=== PATIENT | female | born 1955 | race Caucasian/White ===

== ENCOUNTER 2019-12-30 08:47 | Emergency (ER) | payer OTHER ==
[2019-12-30] MEDS ORDERED: TETRACAINE HCL 0.5% 4ML OPTH ONE (09:07)
[2019-12-30] MEDS ORDERED: FLUORESCEIN SODIUM 1 MG/WRAP ONE (09:07)
--- NOTE | 2019-12-30 09:26 | ER ---
Nurse's Notes [facility] Name: Lanie Hdz Age: 64 yrs Sex: Female : 1955 Arrival Date: 12/30/2019 Time: 08:49 Bed 18 Private MD: Diagnosis: Conjunctivitis Presentation: 12/29 08:50 Chief complaint: Patient states: eye redness, watering, and swelling. Pt states "I've aa5 been dealing with bronchitis and I just got rid of it about 3 weeks ago and also I've had shingles in my eyes so I don't know if it's back". 08:50 Coronavirus screen: Patient reports a cough. Patient denies shortness of breath or aa5 difficulty breathing. Patient denies measured and/or subjective temperature greater than 100.4F prior to today's visit. Patient denies travel on a cruise ship or to a country the [facility] currently lists as an affected area. Patient denies contact with known and/or suspected case of COVID-19. Ebola Screen: Patient negative for fever greater than or equal to 101.5 degrees Fahrenheit, and additional compatible Ebola Virus Disease symptoms. Initial Sepsis Screen: Does the patient meet any 2 criteria? No. Patient's initial sepsis screen is negative. Does the patient have a suspected source of infection? No. Patient's initial sepsis screen is negative. Risk Assessment: Do you want to hurt yourself or someone else? Patient reports no desire to harm self or others. Onset of symptoms was December 2019. 08:50 Acuity: MALIA 4 aa5 08:50 Method Of Arrival: Ambulatory aa5 Historical: - Allergies: 09:01 No Known Allergies; aa5 - PMHx: 09:01 Arthritis; aa5 - PSHx: 09:01 None; aa5 - Immunization history:: Adult Immunizations up to date, Pneumococcal vaccine is up to date, Flu vaccine is up to date. - Social history:: Smoking status: Patient denies any tobacco usage or history of. Screenin:55 Abuse screen: Denies threats or abuse. Nutritional screening: No deficits noted. rb1 Tuberculosis screening: No symptoms or risk factors identified. 08:55 Fall Risk None identified. rb1 Assessment: 08:55 General: Appears in no apparent distress. comfortable, Behavior is calm, cooperative, rb1 Denies fever. Pain: Complains of pain in bilateral eyes Pain currently is 3 out of 10 on a pain scale. Quality of pain is described as soreness Pain began Wednesday. Neuro: Level of Consciousness is awake, alert, obeys commands, Oriented to person, place, time, situation. Cardiovascular: Capillary refill < 3 seconds is brisk in bilateral fingers. Respiratory: Airway is patent Respiratory effort is even, unlabored, Respiratory pattern is regular, symmetrical. GI: No signs and/or symptoms were reported involving the gastrointestinal system. : No signs and/or symptoms were reported regarding the genitourinary system. EENT: Eyes are tearing on bilateral eyes Sclera/Cornea are reddened in bilateral eyes pt. reports both eyes being matted in the mornings, itchy, and clear drainage. Derm: Skin is pink, warm \\T\\ dry. Vital Signs: 08:50 BP 118 / 93; Pulse 68; Resp 18 S; Temp 98.1(O); Pulse Ox 99% on R/A; Weight 72.57 kg aa5 (R); Height 5 ft. 7 in. (170.18 cm) (R); Pain 0/10; 08:50 Body Mass Index 25.06 (72.57 kg, 170.18 cm) aa5 Visual Acuity: 09:08 Left Eye Visual acuity 20/40, Pupil size 2 mm, ; Right Eye Visual acuity 20/40, Pupil rb1 size 2 mm, ; Without Lenses; ED Course: 08:49 Patient arrived in ED. as 08:50 Arm band placed on Patient placed in an exam room, on a stretcher. aa5 08:51 Nola Lindquist [facility]-C [facility]. snw 08:51 Obdulio Puente MD is Attending Physician. snw 08:55 Patient has correct armband on for positive identification. Bed in low position. Call rb1 light in reach. Side rails up X 1. Pulse ox on. NIBP on. 08:58 Siri Haji, XI is Primary Nurse. rb1 09:01 Triage completed. aa5 09:24 Lucho Pires MD is Referral Physician. snw 09:32 No provider procedures requiring assistance completed. Patient did not have IV access rb1 during this emergency room visit. Administered Medications: 09:05 Drug: Tetracaine Solution (0.5 %) 2 application {Note: bilateral eyes.} Route: Topical; rb1 Site: right eye; Outcome: :25 Discharge ordered by . snemily :32 Discharged to home ambulatory. rb1 :32 Condition: stable :32 Discharge instructions given to patient, Instructed on discharge instructions, follow up and referral plans. medication usage, Demonstrated understanding of instructions, follow-up care, medications, Prescriptions given X 1. :32 Patient left the ED. rb1 Signatures: Nola Lindquist, SPINNING ROOM WORKER-C SPINNING ROOM WORKER-Claire Benavidez Audri, RN RN aa5 Siri Haji, RN RN rb1
--- NOTE | 2019-12-30 09:26 | EDPHYS ---
Physician Documentation [facility] Name: Lanie Hdz Age: 64 yrs Sex: Female : 1955 Arrival Date: 12/30/2019 Time: 08:49 Bed 18 Private MD: ED Physician Obdulio Puente HPI: 12/29 08:58 This 64 yrs old Female presents to ER via Unassigned with complaints of Eye snw Swelling, Redness of Eye. 08:58 The patient is experiencing redness, tearing, to both eyes, caused by an unknown snw mechanism. Onset: The symptoms/episode began/occurred gradually, 2 day(s) ago, and became worse and became persistent. Duration: the symptoms are continuous. Aggravated by light. Associated signs and symptoms: Pertinent negatives: ear ache, fever, headache. Patient does not utilize any form of vision correction. Severity of symptoms: At their worst the symptoms were moderate. The patient has experienced a previous episode, pt was diagnosed with shingles at that time, has post-herpetic neuropathy. It is unknown whether or not the patient has recently seen a physician, PCP is Dr. Young, Opthal is Dr. Pires. Historical: - Allergies: 09:01 No Known Allergies; aa5 - PMHx: 09:01 Arthritis; aa5 - PSHx: 09:01 None; aa5 - Immunization history:: Adult Immunizations up to date, Pneumococcal vaccine is up to date, Flu vaccine is up to date. - Social history:: Smoking status: Patient denies any tobacco usage or history of. ROS: 08:56 Constitutional: Negative for fever, chills, and weight loss, ENT: Negative for injury, snw pain, and discharge, Neck: Negative for injury, pain, and swelling, Cardiovascular: Negative for chest pain, palpitations, and edema, Respiratory: Negative for shortness of breath, cough, wheezing, and pleuritic chest pain, Abdomen/GI: Negative for abdominal pain, nausea, vomiting, diarrhea, and constipation, Back: Negative for injury and pain, : Negative for injury, bleeding, discharge, and swelling, MS/Extremity: Negative for injury and deformity, Skin: Negative for injury, rash, and discoloration, Neuro: Negative for headache, weakness, numbness, tingling, and seizure, Psych: Negative for depression, anxiety, suicide ideation, homicidal ideation, and hallucinations. 08:56 Eyes: Positive for itching, redness, swelling, of the right upper eyelid, outer aspect of conjuctiva of right eye, inner aspect of conjuctiva of right eye, right inner canthus, left upper eyelid, outer aspect of conjuctiva of left eye, inner aspect of conjunctiva of left eye and left inner canthus. Exam: 08:56 Constitutional: This is a well developed, well nourished patient who is awake, alert, snw and in no acute distress. Head/Face: Normocephalic, atraumatic. ENT: Nares patent. No nasal discharge, no septal abnormalities noted. Tympanic membranes are normal and external auditory canals are clear. Oropharynx with no redness, swelling, or masses, exudates, or evidence of obstruction, uvula midline. Mucous membranes moist. Neck: Trachea midline, no thyromegaly or masses palpated, and no cervical lymphadenopathy. Supple, full range of motion without nuchal rigidity, or vertebral point tenderness. No Meningismus. Chest/axilla: Normal chest wall appearance and motion. Nontender with no deformity. No lesions are appreciated. Cardiovascular: Regular rate and rhythm with a normal S1 and S2. No gallops, murmurs, or rubs. Normal PMI, no JVD. No pulse deficits. Respiratory: Lungs have equal breath sounds bilaterally, clear to auscultation and percussion. No rales, rhonchi or wheezes noted. No increased work of breathing, no retractions or nasal flaring. Abdomen/GI: Soft, non-tender, with normal bowel sounds. No distension or tympany. No guarding or rebound. No evidence of tenderness throughout. Back: No spinal tenderness. No costovertebral tenderness. Full range of motion. Skin: Warm, dry with normal turgor. Normal color with no rashes, no lesions, and no evidence of cellulitis. MS/ Extremity: Pulses equal, no cyanosis. Neurovascular intact. Full, normal range of motion. Neuro: Awake and alert, GCS 15, oriented to person, place, time, and situation. Cranial nerves II-XII grossly intact. Motor strength 5/5 in all extremities. Sensory grossly intact. Cerebellar exam normal. Normal gait. Psych: Awake, alert, with orientation to person, place and time. Behavior, mood, and affect are within normal limits. 08:56 Eyes: Periorbital structures: swelling, that is moderate, bilaterally, Pupils: equal, round, and reactive to light and accomodation, Extraocular movements: no acute changes, Conjunctiva: injected, bilaterally, Sclera: no appreciated abnormality. Vital Signs: 08:50 BP 118 / 93; Pulse 68; Resp 18 S; Temp 98.1(O); Pulse Ox 99% on R/A; Weight 72.57 kg aa5 (R); Height 5 ft. 7 in. (170.18 cm) (R); Pain 0/10; 08:50 Body Mass Index 25.06 (72.57 kg, 170.18 cm) aa5 Visual Acuity: 09:08 Left Eye Visual acuity 20/40, Pupil size 2 mm, ; Right Eye Visual acuity 20/40, Pupil rb1 size 2 mm, ; Without Lenses; Procedures: 09:21 Eye Exam: No dendrites noted on exam. No corneal abrasions. No dye uptake noted. EOMI. snw MDM: 09:00 Patient medically screened. snw 09:26 Data reviewed: vital signs, nurses notes. Data interpreted: Pulse oximetry: on room air snw is 99 %. Interpretation: normal. Counseling: I had a detailed discussion with the patient and/or guardian regarding: the historical points, exam findings, and any diagnostic results supporting the discharge/admit diagnosis, the need for outpatient follow up, to return to the emergency department if symptoms worsen or persist or if there are any questions or concerns that arise at home. Special discussion: Based on the history and exam findings, there is no indication for further emergent testing or inpatient evaluation. I discussed with the patient/guardian the need to see the opthamologist for further evaluation of the symptoms. 12/29 08:56 Order name: Fluoresene Opth strip: x 2 please; Complete Time: 09:08 snw 12/29 08:58 Order name: Visual Acuity; Complete Time: 09:08 snw Administered Medications: 09:05 Drug: Tetracaine Solution (0.5 %) 2 application {Note: bilateral eyes.} Route: Topical; rb1 Site: right eye; Disposition: 09:35 Co-signature as Attending Physician, Obdulio Puente MD. rn Disposition: 12/30/19 09:25 Discharged to Home. Impression: Conjunctivitis. - Condition is Stable. - Discharge Instructions: Viral Conjunctivitis, Hand Washing. - Prescriptions for Vigamox 0.5 % Ophthalmic Drops - instill 1 drop by OPHTHALMIC route every 8 hours for 7 days; 5 milliliter. - Medication Reconciliation Form, Thank You Letter, Antibiotic Education, Prescription Opioid Use form. - Follow up: Emergency Department; When: As needed; Reason: Worsening of condition. Follow up: Lucho Pires MD; When: 1 - 2 days; Reason: Recheck today's complaints, Continuance of care, Re-evaluation by your physician. Signatures: Nola Lindquist, PEACH GROWER-C PEACH GROWER-Csnw Obdulio Puente MD MD rn Amanda Kunz RN RN aa5 Siri Haji, RN RN rb1 Corrections: (The following items were deleted from the chart) 09:32 09:25 12/30/2019 09:25 Discharged to Home. Impression: Conjunctivitis. Condition is rb1 Stable. Forms are Medication Reconciliation Form, Thank You Letter, Antibiotic Education, Prescription Opioid Use. Follow up: Emergency Department; When: As needed; Reason: Worsening of condition. Follow up: Lucho Pires; When: 1 - 2 days; Reason: Recheck today's complaints, Continuance of care, Re-evaluation by your physician. snw
[2019-12-30 09:38] VITALS: BP 118/93; TEMP 98.1; O2SAT 99
== END 2019-12-30 09:32 | disposition home or self-care (01) ==
LOC: ER 08:47
DX: H10.9 Unspecified conjunctivitis (principal)
CPT/HCPCS: 99283

== ENCOUNTER 2022-04-12 12:40 | Emergency (ER) | payer OTHER ==
--- NOTE | 2022-04-12 13:37 | EDPHYS ---
Physician Documentation [facility] Name: Lanie Hdz Age: 66 yrs Sex: Female : 1955 Arrival Date: 04/12/2022 Time: 12:41 Bed 6 Private MD: ED Physician Leona Galindo HPI: 04/12 12:59 This 66 yrs old Female presents to ER via Ambulatory with complaints of Finger Injury. sd2 12:59 66-year-old female presents with chief complaint of left index finger injury. Patient sd2 reports that she was working in the yard and putting a hole into something when she cut her finger with the tool. She was able to wrap some gauze around it and stop the bleeding prior to arrival. She does not take any blood thinners. She denies any other areas of injury. Her tetanus is not currently up-to-date.. Historical: - Allergies: 12:46 No Known Allergies; ll1 - PMHx: 12:46 Arthritis; ll1 - PSHx: 12:46 finger SX; ll1 - Immunization history:: Client reports receiving the 2nd dose of the Covid vaccine, Last tetanus immunization: < 10 years ago. - Social history:: Smoking status: Patient denies any tobacco usage or history of. ROS: 12:59 Constitutional: Negative for fever, chills, and weight loss, MS/Extremity: Positive for sd2 injury. Negative for deformity, Skin: Negative for rash. Positive for laceration. Neuro: Negative for headache, numbness and tingling. Exam: 12:59 Constitutional: This is a well developed, well nourished patient who is awake, alert, sd2 and in no acute distress. Head/Face: Normocephalic, atraumatic. Skin: Warm, dry with normal turgor. Normal color with no rashes, no lesions, and no evidence of cellulitis. Approximately 1.5 cm superficial laceration noted to L index finger at the distal fingertip. Controlled bleeding. MS/ Extremity: Pulses equal, no cyanosis. Neurovascular intact. Full, normal range of motion. Ambulatory without difficulty. Psych: Awake, alert, with orientation to person, place and time. Behavior, mood, and affect are within normal limits. Vital Signs: 12:47 BP 130 / 79; Pulse 77; Resp 16; Temp 97.2; Pulse Ox 96% on R/A; Weight 68.04 kg; Height ll1 5 ft. 7 in. (170.18 cm); Pain 2/10; 12:47 Body Mass Index 23.49 (68.04 kg, 170.18 cm) ll1 Laceration: 13:34 Wound Repair of 1.5cm ( 0.6in ) subcutaneous laceration to left hand. Linear shaped.. sd2 Hemostasis noted.. Distal neuro/vascular/tendon intact. Anesthesia: Local anesthetic administered with 1% lidocaine. Wound prep: Simple cleansing with betadine by nurse. Skin closed with 3 5-0 Prolene using simple sutures and sterile technique. Dressed with non-adherent dressing. Patient tolerated well. MDM: 12:55 Patient medically screened. sd2 12:59 Differential diagnosis: laceration, wound infection, tetanus, doubt fracture, doubt FB sd2 among others. Data reviewed: vital signs, nurses notes. 13:34 Counseling: I had a detailed discussion with the patient and/or guardian regarding: the sd2 historical points, exam findings, and any diagnostic results supporting the discharge/admit diagnosis, the need for outpatient follow up, to return to the emergency department if symptoms worsen or persist or if there are any questions or concerns that arise at home. Medical screen evaluation completed. EMTALA emergency medical condition absent. ED course: Tetanus updated. Laceration repaired without complication or difficulty. Pt advised of continued wound care and need for suture removal. Verbalizes understanding of discharge plan and strict return precautions.. 04/12 12:57 Order name: Setup-Suture Tray; Complete Time: 13:12 sd2 04/12 12:57 Order name: Prolene, Sutures sd2 04/12 12:57 Order name: Misc. Order: Please have patient soak finger in bucket of water and sd2 betadine; Complete Time: 13:12 Administered Medications: 13:54 Drug: Tetanus-Diphtheria Toxoid Adult 0.5 ml {G[employer]: [employer]. Exp: gamble 12/06/2023. Lot #: [id number]. } Route: IM; Site: right deltoid; 13:55 Follow up: Response: No adverse reaction gamble Disposition Summary: 04/12/22 13:36 Discharge Ordered Location: Home sd2 Problem: new sd2 Symptoms: have improved sd2 Condition: Stable sd2 Diagnosis - Laceration without foreign body of left index finger without damage to nail sd2 Followup: sd2 - With: Private Physician - When: 1 week - Reason: Staple/Suture removal Followup: sd2 - With: Emergency Department - When: 1 week - Reason: Staple/Suture removal Discharge Instructions: - Discharge Summary Sheet sd2 - Laceration Care, Adult sd2 Forms: - Medication Reconciliation Form sd2 - Thank You Letter sd2 - Antibiotic Education sd2 - Prescription Opioid Use sd2 Signatures: Arlin Valdez, RN RN ll1 Lauren Brasher RN RN gamble Loena Galindo MD MD sd2
--- NOTE | 2022-04-12 13:37 | ER ---
Nurse's Notes [facility] Name: Lanie Hdz Age: 66 yrs Sex: Female : 1955 Arrival Date: 04/12/2022 Time: 12:41 Bed 6 Private MD: Diagnosis: Laceration without foreign body of left index finger without damage to nail Presentation: 04/12 12:47 Chief complaint: Patient states: Accidentally cut L hand 2nd digit with [employer] ll1 scissors 45 min [employer] WHE[employer]ION. Bleeding controlled. Coronavirus screen: Vaccine status: Patient reports receiving the 2nd dose of the covid vaccine. Client denies travel out of the [place] in the last 14 days. At this time, the client does not indicate any symptoms associated with coronavirus-19. Ebola Screen: Patient denies travel to an Ebola-affected area in the 21 days before illness onset. Initial Sepsis Screen: Does the patient meet any 2 criteria? No. Patient's initial sepsis screen is negative. Does the patient have a suspected source of infection? Yes: Skin breakdown/wound. Risk Assessment: Do you want to hurt yourself or someone else? Patient reports no desire to harm self or others. Onset of symptoms was April 12, 2022. 12:47 Method Of Arrival: Ambulatory ll1 12:47 Acuity: MALIA 4 ll1 Triage Assessment: 12:49 General: Appears in no apparent distress. Behavior is calm, cooperative, appropriate ll1 for age. Pain: Complains of pain in left hand Quality of pain is described as aching. Derm: laceration L hand 3nd digit. Injury Description: Laceration. Historical: - Allergies: 12:46 No Known Allergies; ll1 - PMHx: 12:46 Arthritis; ll1 - PSHx: 12:46 finger SX; ll1 - Immunization history:: Client reports receiving the 2nd dose of the Covid vaccine, Last tetanus immunization: < 10 years ago. - Social history:: Smoking status: Patient denies any tobacco usage or history of. Screenin:52 Abuse screen: Denies threats or abuse. Denies injuries from another. Nutritional gamble screening: No deficits noted. Tuberculosis screening: No symptoms or risk factors identified. Fall Risk None identified. Assessment: 13:52 General: Appears in no apparent distress. Behavior is. Pain: Complains of pain in LEFT gambel MIDDLE FINGER. Derm: Wound noted LEFT MIDDLE FINGER LACERATION. WOUND WAS CLEAN, [address] BY PROVIDER. Musculoskeletal: No deficits noted. Vital Signs: 12:47 BP 130 / 79; Pulse 77; Resp 16; Temp 97.2; Pulse Ox 96% on R/A; Weight 68.04 kg; Height ll1 5 ft. 7 in. (170.18 cm); Pain 2/10; 12:47 Body Mass Index 23.49 (68.04 kg, 170.18 cm) 1 ED Course: 12:41 Patient arrived in ED. rg4 12:45 Leona Galindo MD is Attending Physician. sd2 12:46 Arm band placed on. ll1 12:49 Triage completed. 1 13:05 Lauren Brasher RN is Primary Nurse. gamble 13:55 Patient has correct armband on for positive identification. Bed in low position. gamble 13:55 Assist provider with laceration repair. Patient did not have IV access during this emergency room visit. Administered Medications: 13:54 Drug: Tetanus-Diphtheria Toxoid Adult 0.5 ml {[employer]: [employer]. Exp: [employer]amlbe 12/06/2023. Lot #: [id number]. } Route: IM; Site: right deltoid; 13:55 Follow up: Response: No adverse reaction Outcome: 13:36 Discharge ordered by . sd2 13:55 Discharged to home ambulatory. gamble 13:55 Condition: good 13:55 Discharge instructions given to patient. 13:55 Patient left the ED. Signatures: Liz Montiel rg4 Arlin Valdez RN RN [facility] Lauren Brasher RN RN ha Dunlop, Stephanie, MD MD sd2
[2022-04-12] MEDS ORDERED: TETANUS & DIPHTHERIA TOX,ADULT 0.5 ML VIAL ONE (13:52)
[2022-04-12 14:08] VITALS: BP 130/79; TEMP 97.2; O2SAT 96
== END 2022-04-12 13:55 | disposition home or self-care (01) ==
LOC: ER 12:40
PROC: 0JQK0ZZ Repair Left Hand Subcutaneous Tissue and Fascia, Open Approach (ICD-10-PCS; principal; 2022-04-12)
DX: S61.211A Laceration without foreign body of left index finger without damage to nail, initial encounter (principal); Z23 Encounter for immunization
CPT/HCPCS: 90471; 90714; 99283